=== PATIENT | female | born 1990 | race Caucasian/White ===

== ENCOUNTER 2017-10-28 09:04 | Emergency (ER) | payer OTHER ==
[~2017-10-28] VITALS: Ht 157.5 cm; Wt 65.4 kg
[2017-10-28 09:23] VITALS: BP 107/58; Ht 157.5 cm; Wt 65.4 kg
== END 2017-10-28 11:23 | disposition home or self-care (01) ==
LOC: ED 09:04
DX: M54.6 Pain in thoracic spine (principal); R19.7 Diarrhea, unspecified
CPT/HCPCS: Q0162

== ENCOUNTER 2017-11-06 19:28 | Emergency (ER) | payer OTHER ==
[~2017-11-06] VITALS: Ht 157.5 cm; Wt 64.9 kg
[2017-11-06 20:21] VITALS: BP 120/81; Ht 157.5 cm; Wt 64.9 kg
== END 2017-11-06 23:37 | disposition home or self-care (01) ==
LOC: ED 19:28
DX: H66.91 Otitis media, unspecified, right ear (principal); J98.01 Acute bronchospasm; J02.9 Acute pharyngitis, unspecified; R11.2 Nausea with vomiting, unspecified

== ENCOUNTER 2018-05-02 15:53 | Emergency (ER) | payer OTHER ==
[~2018-05-02] VITALS: Ht 157.5 cm; Wt 64.0 kg
[2018-05-02 15:57] VITALS: Ht 157.5 cm; Wt 64.0 kg
[2018-05-02 17:14] VITALS: BP 116/85
== END 2018-05-02 17:14 | disposition home or self-care (01) ==
LOC: ED 15:53
DX: S93.602A Unspecified sprain of left foot, initial encounter (principal); X58.XXXA Exposure to other specified factors, initial encounter; Y93.89 Activity, other specified; Y92.89 Other specified places as the place of occurrence of the external cause; Y99.8 Other external cause status

== ENCOUNTER 2019-02-24 15:21 | Emergency (ER) | payer OTHER ==
[~2019-02-24] VITALS: Ht 157.5 cm; Wt 68.5 kg
[2019-02-24 15:24] VITALS: Ht 157.5 cm; Wt 68.5 kg
[2019-02-24 16:16] VITALS: BP 123/67
== END 2019-02-24 16:16 | disposition home or self-care (01) ==
LOC: ED 15:21
DX: T81.31XA Disruption of external operation (surgical) wound, not elsewhere classified, initial encounter (principal)